=== PATIENT | male | born 1945 | race Caucasian/White ===

== ENCOUNTER 2022-03-14 18:33 | Emergency (ER) | payer OTHER, SELFPAY ==
[2022-03-14] VITALS (7 sets, daily range): BP systolic 142–176; BP diastolic 68–79; PULSE 59–71; RESP 18; TEMP 36.7; O2SAT 96–99
--- NOTE | 2022-03-14 19:18 | PC.NURSE ---
Pt reports indwelling catheter for approximately 2 months, [facility] Pt reports no output since draining catheter bag this morning. Abdominal pain intermittent for the past few months, no worse today, 4/10 with palpitation. Pt reports peeing around catheter at times and increased pain when that happens, thick purulent drainage noted around catheter entrance site.
--- NOTE | 2022-03-14 19:59 | ED_ITS ---
HPI - Male Genitourinary General Chief complaint: Urogenital-Male Stated complaint: Issue with his Jauregui catheter, has MSA Time Seen by Provider: 03/14/22 19:31 Source: patient Mode of arrival: Family Vehicle History of Present Illness HPI Narrative: This is a 76-year-old male with MS-a aggressive Parkinson's like MS and labile blood pressure and urinary retention. Patient states had issues with his Jauregui catheter today he has been unable to urinate has not made any urine or seen any come out but bladder does feel full. He denies fevers or chills. No chest pain or shortness of breath. No nausea or vomiting. Been constipated he tried an enema today has had a bowel movement for several days but has been passing gas. He states he is noticed some drainage around the catheter that looks a little bit like thick urine. Patient use to self-catheterize but switch to indwelling Jauregui catheter about 2 and half months ago he had switched out about 2-3 weeks ago. He has not really had any issues up to this point. He is not ant icoagulated. He is had a TURP in the past as well as hernia repair. Denies drug allergies. He is accompanied by his today. Related Data Previous Rx's Medication Instructions Recorded cephalexin 500 mg capsule 500 mg PO BID 7 days #14 caps 03/14/22 Review of Systems Review of Systems ROS Unobtainable: All systems reviewed & are unremarkable except as noted in HPI and below Patient History Social History Smoking Status: Former smoker Smoking Status: Former smoker alcohol intake frequency: 0-2 drinks per day Substance Use Type: does not use Exam Narrative Exam Narrative: GENERAL: Alert and oriented x three, male in mild distress HEENT: Head normocephalic, atraumatic, EOMI, pupils reactive, face symmetric, moist mucous membranes NECK: Supple, full range of motion CARDIOVASCULAR: Regular rate and rhythm without murmurs, rubs or gallops. RESPIRATORY: Breath sounds equal bilaterally, no wheezes rales or rhonchi. ABDOMEN: Soft, nontender. Normoactive bowel sounds all 4 quadrants. No guarding or rebound, rigidity, no mass : No CVA tenderness. Male: normal external examination, no penile discharge noted Jauregui catheter in place not draining even when flushed, patient does have area of erosion at the 6 o'clock position the urethral meatus, it appears fairly healed, no drainage or erythema and patient states this has been present for some time and is not new, testicles non-tender, cremasteric reflex intact, no inguinal hernias noted. EXTREMITIES: Normal range of motion, no clubbing or edema. Neurovascularly intact NEUROLOGICAL: Cranial nerves II through XII grossly intact. Moving all extremities SKIN: Warm, dry, no petechiae, no rashes or lesions. Initial Vital Signs Initial Vital Signs: Vital Signs Pulse Rate 71 03/14/22 18:51 Blood Pressure 150/72 H 03/14/22 18:51 Pulse Oximetry 97 03/14/22 18:51 Course Orders Ordered: ED Orders 03/14/22 20:10 UA Complete [Urinalysis and Microscopic] Stat Urine Culture Stat 03/14/22 20:28 BMP [Basic Metabolic Panel] Stat CBC Auto Diff [Complete Blood Count AUTO DIFF] Stat Discontinued Medications Cephalexin HCl (Cephalexin 250 Mg Capsule) 500 mg PO NOW ONE Stop: 03/14/22 21:14 Last Admin: 03/14/22 21:21 Dose: 500 mg Documented By: AT Lidocaine HCl (Lidocaine 2% (Glydo) 6 Ml Gel) 6 ml TOP NOW ONE Stop: 03/14/22 19:52 Last Admin: 03/14/22 20:00 Dose: 6 ml Documented By: AT Vital Signs Vital signs: Vital Signs - 8 hr 03/14/22 18:56 03/14/22 18:51 03/14/22 18:51 Temperature 98.0 F Pulse Rate 71 71 Respiratory Rate 18 Blood Pressure 150/72 H 150/72 H Pulse Oximetry 96 97 Oxygen Delivery Method Room Air 03/14/22 19:00 03/14/22 19:00 03/14/22 19:30 Temperature Pulse Rate 70 Respiratory Rate Blood Pressure 145/74 H 161/77 H Pulse Oximetry 98 Oxygen Delivery Method 03/14/22 19:30 03/14/22 20:00 03/14/22 20:00 Temperature Pulse Rate 63 66 Respiratory Rate Blood Pressure 176/79 H Pulse Oximetry 99 99 Oxygen Delivery Method 03/14/22 20:30 03/14/22 20:30 03/14/22 21:00 Temperature Pulse Rate 61 Respiratory Rate Blood Pressure 151/72 H 142/68 H Pulse Oximetry 98 Oxygen Delivery Method 03/14/22 21:00 Temperature Pulse Rate 59 L Respiratory Rate Blood Pressure Pulse Oximetry 98 Oxygen Delivery Method MDM - Male Genitourinary Lab Data Result diagrams: 03/14/22 20:28 03/14/22 20:28 Labs: Lab Results 03/14/22 03/14/22 03/14/22 Range/Units 20:10 20:28 20:28 WBC 9.4 (4.5-11.0) X10^3/uL RBC 4.22 L (4.5-5.9) X10^6/uL Hgb 13.3 L (13.5-17.5) g/dL Hct 39.9 L (41-53) % MCV 94.8 (80-100) fL MCH 31.5 (26-34) PG MCHC 33.2 (30-36) % RDW 13.1 (11.6-14.8) % Plt Count 214 (150-400) X10^3/uL Neut % (Auto) 71.2 (50-75) % Lymph % (Auto) 12.3 L (25-40) % [place] % (Auto) 12.0 (3-14) % Eos % (Auto) 3.6 (2-4) % Baso % (Auto) 0.9 (0-2) % Neut # (Auto) 6700 (5501-6551) /uL Lymph # (Auto) 1200 (7865-0154) /uL [place] # (Auto) 1100 H (0-900) /uL Eos # (Auto) 300 (0-450) /uL Baso # (Auto) 100 (0-100) /uL Sodium 139 (137-145) mmol/L Potassium 4.2 (3.4-5.1) mmol/L Chloride 104 (98-107) mmol/L Carbon Dioxide 28 (22-32) mmol/L BUN 24 H (9-20) mg/dL Creatinine 0.84 (0.66-1.25) mg/dL Estimated GFR > 60 (>60) mL/min BUN/Creatinine Ratio 28.6 H (6-22) Glucose 87 (80-110) mg/dL Calcium 8.7 (8.4-10.2) mg/dL Urine Color Yellow Urine Appearance Cloudy Urine pH 8.5 H (4.5-8.0) Ur Specific [place] 1.015 (1.000-1.035) Urine Protein 3+ H (Negative) Urine Glucose (UA) Negative (Negative) g/dL Urine Ketones Trace H (NEGATIVE) Urine Occult Blood 2+ H (Negative) Urine Nitrate Positive H (Negative) Urine Bilirubin Negative (NEGATIVE) Urine Urobilinogen 0.2 (0.2) E.U./dL Ur Leukocyte Esterase 2+ H (NEGATIVE) Urine RBC None seen (0-5/HPF) Urine WBC 30-100/hpf H (0-5/HPF) Amorphous Sediment 1+ Urine Bacteria Many (>30) H (None) Ur Culture Indicated? Specimen cultured MDM Narrative Medical decision making narrative: This is a 76-year-old male with blocked catheter. Patient's catheter was able to be flushed, Jauregui was replaced and did drain urine. Sent for UA patient has had some pain and does appear to have a UTI. Patient started on oral antibiotic, CBC BMP were ordered as patient states he is not making very much urine regularly but shows normal renal function. Patient given 1st dose in the ER no signs of sepsis or other infection and catheter is now draining. Discharge Plan Departure Patient Disposition: Home Clinical Impression: Urinary tract infection Instructions: DI for Urinary Tract Infection (UTI) Activity Restrictions/Additional Instructions: Please follow-up with your physician/urology team. Your urine does show signs of infection today. Please take antibiotics until completely gone. Urine culture is sent but takes approximately 2 days result if there is resistance we would call you to change your antibiotics. Prescription sent to [facility] in [place]. Please return for fevers, new or worsening abdominal pain, persistent vomiting, if you are Jauregui catheter is not draining, if there is large clots or you are having difficulty with bleeding or other new or concerning issues. Prescriptions: New cephalexin 500 mg capsule 500 mg PO BID 7 Days Qty: 14 0RF Visit Report Forms: Patient Portal/API
[2022-03-14] MEDS: LIDOCAINE 2% (GLYDO) 6 ML GEL TOP (20:00)
[2022-03-14 20:22] LABS: Appearance Urine UA CLOUDY; Bilirubin Urine UA NEGATIVE (NEGATIVE); Color Urine UA YELLOW; Glucose Urine UA NEGATIVE (Negative); Ketones Urine UA TRACE (NEGATIVE); Leukocyte Esterase Urine UA 2+ (NEGATIVE); Nitrite Urine UA POSITIVE (Negative); Occult Blood Urine UA 2+ (Negative); Protein Urine UA 3+ (Negative); Specific Gravity Urine UA 1.015 (1.000-1.035); Urobilinogen Urine UA 0.2 E.U./dL (0.2); pH Urine UA 8.5 (4.5-8.0)
[2022-03-14 20:34] LABS: Amorphous Sediment Urine 1+; Bacteria Urine Many (>30); Culture Indicated Urine Specimen Cultured; RBC Urine None Seen (0-5/HPF); WBC Urine 30-100/HPF (0-5/HPF)
[2022-03-14 20:36] LABS: Add Manual Diff / Slide Review NO; Basophils Absolute Auto 100 /uL (0-100); Basophils Percent Auto 0.9 % (0-2); Eosinophils Absolute Auto 300 /uL (0-450); Eosinophils Percent Auto 3.6 % (2-4); Hematocrit 39.9 % (41-53); Hemoglobin 13.3 g/dL (13.5-17.5); Lymphocytes Absolute Auto 1200 /uL (1100-4500); Lymphocytes Percent Auto 12.3 % (25-40); Mean Corpuscular HGB Conc 33.2 % (30-36); Mean Corpuscular Hemoglobin 31.5 PG (26-34); Mean Corpuscular Volume 94.8 fL (80-100); Monocytes Absolute Auto 1100 /uL (0-900); Neutrophils Absolute Auto 6700 /uL (1500-7000); Neutrophils Percent Auto 71.2 % (50-75); Platelet Count 214 X10^3/uL (150-400); Red Blood Cell Count 4.22 X10^6/uL (4.5-5.9); Red Cell Distribution Width 13.1 % (11.6-14.8); White Blood Cell Count 9.4 X10^3/uL (4.5-11.0)
[2022-03-14 20:49] LABS: BUN Creatinine Ratio 28.6 (6-22); Blood Urea Nitrogen 24 mg/dL (9-20); Calcium 8.7 mg/dL (8.4-10.2); Carbon Dioxide 28 mmol/L (22-32); Chloride 104 mmol/L (98-107); Estimated Glomerular Filt Rate > 60 mL/min (>60); Glucose 87 mg/dL (80-110); HEMOLYSIS < 15 (0-50); Potassium 4.2 mmol/L (3.4-5.1); Sodium 139 mmol/L (137-145)
[2022-03-14] MEDS: cephALEXin 250 MG CAPSULE 500 MG PO (21:21)
== END 2022-03-14 21:38 | disposition home or self-care (01) ==
PROVIDERS: Emergency Provider Emergency Medicine
DX: N39.0 Urinary tract infection, site not specified (principal)
CPT/HCPCS: 36415; 80048; 81001; 85025; 87077; 87086; 87186; 99283; 99284

== ENCOUNTER 2022-03-28 06:31 | Emergency (ER) | payer OTHER, SELFPAY ==
[2022-03-28 07:15] VITALS: BP 105/58; PULSE 63; RESP 18; TEMP 36.5; O2SAT 97; BMI 23.6
--- NOTE | 2022-03-28 08:29 | PC.NURSE ---
Patient states he has Parkinson's and self catheterized himself previously, but had an indwelling catheter placed within the last year due to decreasing motor ability and difficulty with properly self catheterizing. He was in 2 weeks ago for catheter not draining and presents today with no urine in his leg bag since 2200 last night. Upon inspection, he has a 14 Fr catheter in. He stated that at his last visit, they were unable to irrigate it and replaced it. Removed his current catheter and replaced with a 16 Fr coude tip, 2 way catheter to prevent further blockages. Previous catheter had some white/yellow chunks of sediment around the tip of the catheter. Patient tolerated procedure without difficulty and dark yellow urine now flowing freely into drainage bag. Gave patient a new leg bag and securement device as well.
--- NOTE | 2022-03-28 08:36 | ED.MALEGU ---
HPI - Male Genitourinary General Chief complaint: Urogenital-Male Stated complaint: cathater not draining Time Seen by Provider: 03/28/22 08:23 Source: patient Mode of arrival: Ambulatory Limitations: no limitations History of Present Illness HPI Narrative: This is a 76-year-old male with history of Parkinson's and indwelling Jauregui catheter. Patient used to self-catheterize but secondary to his Parkinson's is no longer able to and had a indwelling Jauregui catheter placed about 2 months ago. He had UTI about 3 weeks ago. Patient states that he is noticed quite a bit of sedimentation and today presented as the catheter was blocked and not draining. Patient denies fevers. Has had some chills sensation. No abdominal, back or flank pain, no nausea or vomiting. No other GI symptoms. Patient has not had any with urination. He denies any allergies to medications. Follows through the [facility] for his care they are changing his catheter once monthly following with them for Urology. Related Data Previous Rx's Medication Instructions Recorded cephalexin 500 mg capsule 500 mg PO BID 7 days #14 caps 03/28/22 Review of Systems Review of Systems ROS Unobtainable: All systems reviewed & are unremarkable except as noted in HPI and below Patient History Social History Smoking Status: Former smoker Smoking Status: Former smoker alcohol intake frequency: 0-2 drinks per day Substance Use Type: does not use Exam Narrative Exam Narrative: GENERAL: Alert and oriented x three, elderly male in mild distress. HEENT: Head normocephalic, atraumatic, EOMI, pupils reactive, face symmetric, moist mucous membranes NECK: Supple, full range of motion CARDIOVASCULAR: Regular rate and rhythm without murmurs, rubs or gallops. RESPIRATORY: Breath sounds equal bilaterally, no wheezes rales or rhonchi. ABDOMEN: Soft, nontender. Normoactive bowel sounds all 4 quadrants. No guarding or rebound, rigidity, no mass : No CVA tenderness. Male: normal external examination, patient does have Jauregui catheter in place this the new catheter changed over by nursing, draining dark yellow sedimentation urine, no blood or clots. No penile discharge or lesions, testicles non-tender, cremasteric reflex intact, no inguinal hernias noted. EXTREMITIES: Normal range of motion, no clubbing or edema. Neurovascularly intact NEUROLOGICAL: Cranial nerves II through XII grossly intact. Moving all extremities SKIN: Warm, dry, no petechiae, no rashes or lesions. Initial Vital Signs Initial Vital Signs: Vital Signs Temperature 97.7 F 03/28/22 07:15 Pulse Rate 63 03/28/22 07:15 Respiratory Rate 18 03/28/22 07:15 Blood Pressure 105/58 L 03/28/22 07:15 Pulse Oximetry 97 03/28/22 07:15 Oxygen Delivery Method 03/28/22 07:15 Course Orders Ordered: ED Orders 03/28/22 08:45 UA Complete [Urinalysis and Microscopic] Stat Vital Signs Vital signs: Vital Signs - 8 hr 03/28/22 07:15 Temperature 97.7 F Pulse Rate 63 Respiratory Rate 18 Blood Pressure 105/58 L Pulse Oximetry 97 Oxygen Delivery Method Room Air MDM - Male Genitourinary Lab Data Labs: Lab Results 03/28/22 Range/Units 08:45 Urine Color [place] Urine Appearance Cloudy Urine pH 8.5 H (4.5-8.0) Ur Specific [place] 1.010 (1.000-1.035) Urine Protein 2+ H (Negative) Urine Glucose (UA) Trace H (Negative) g/dL Urine Ketones Negative (NEGATIVE) Urine Occult Blood 3+ H (Negative) Urine Nitrate Positive H (Negative) Urine Bilirubin Negative (NEGATIVE) Urine Urobilinogen 0.2 (0.2) E.U./dL Ur Leukocyte Esterase 3+ H (NEGATIVE) Urine RBC 10-30/hpf H (0-5/HPF) Urine WBC 10-30/hpf H (0-5/HPF) Ur Squamous Epith Cells 0-1 /hpf (0-5/HPF) Urine Bacteria Many (>30) H (None) Ur Culture Indicated? Specimen cultured MDM Narrative Medical decision making narrative: This is a pleasant 76-year-old male who had blockage of his Jauregui catheter with what appeared to be sediment, patient does have quite a bit of sediment in his urine UA was sent for suspected infection. Patient has been self cathing residential and only recently moved indwelling catheter. Patient was seen in March of 2014 and had greater than 100,000 Citrobacter and [id number] Klebsiella which were pansensitive except for ampicillin and Macrobid. Patient does appear to be sensitive to cephalosporins will start on Keflex 500 mg p.o. b.i.d. x7 days. Discharge Plan Departure Patient Disposition: Home Clinical Impression: Complication, blocked Jauregui catheter Activity Restrictions/Additional Instructions: Follow-up with your urology team. Antibiotics were started today based on her prior cultures. Culture report from 03/14/2022 showed Citrobacter and Klebsiella. This culture is included so you can share with your urologist. Your sample today has been re-cultured as well and is pending if this shows resistance we will contact you to change antibiotics. Antibiotics sent to [facility] in [place]. Please return for fevers, new or worsening abdominal, back or flank pain, if you have recurrent blockage of her catheter, fits not draining or you have decreased urine output, persistent vomiting, issues bowel movements or other new or concerning symptoms. Prescriptions: New cephalexin 500 mg capsule 500 mg PO BID 7 Days Qty: 14 0RF Referrals: Shantelle Spivey MD [Primary Care Provider] - Visit Report Forms: Patient Portal/API
[2022-03-28 08:54] LABS: Appearance Urine UA CLOUDY; Bilirubin Urine UA NEGATIVE (NEGATIVE); Color Urine UA ORANGE; Glucose Urine UA TRACE g/dL (Negative); Ketones Urine UA NEGATIVE (NEGATIVE); Leukocyte Esterase Urine UA 3+ (NEGATIVE); Nitrite Urine UA POSITIVE (Negative); Occult Blood Urine UA 3+ (Negative); Protein Urine UA 2+ (Negative); Urobilinogen Urine UA 0.2 E.U./dL (0.2); pH Urine UA 8.5 (4.5-8.0)
[2022-03-28 08:59] LABS: Bacteria Urine Many (>30); Culture Indicated Urine Specimen Cultured; RBC Urine 10-30/HPF (0-5/HPF); Squamous Epithelial Cell Urine 0-1 /HPF (0-5/HPF); WBC Urine 10-30/HPF (0-5/HPF)
[2022-03-28 09:41] VITALS: BP 168/83; PULSE 65; RESP 18; O2SAT 98
--- NOTE | 2022-03-28 09:45 | PC.NURSE ---
Patient has Parkinson's and is a [facility]. He has had two repeat ED visits for catheter issues. He sees a urologist through the [facility] in [place]. He was instructed to follow up with his urologist after today's visit, but he states that traveling to [place] is an extreme hardship for him. He has an electric wheelchair, but no lift. Patient required assistance with dressing and transferring into wheelchair. RN walked him out and he travels in the front seat of a van, which is lifted several inches off of the ground. Patient has prior history of repeat falls, but states this is under control at this time. He does state he has some difficulty navigating their bathroom. Request for social services director to follow up with patient to ensure they are aware of any resources that may be available for DME/home safety devices. Patient and spouse agreeable to [facility] follow up. They will attempt to establish care with a [facility] in [facility], which is more accessible to them.
== END 2022-03-28 09:44 | disposition home or self-care (01) ==
PROVIDERS: Emergency Provider Emergency Medicine; Family Provider Psychiatry & Neurology Neurology; PCP Psychiatry & Neurology Neurology
DX: T83.091A Other mechanical complication of indwelling urethral catheter, initial encounter (principal)
CPT/HCPCS: 51798; 81001; 87077; 87086; 87186; 99283

== ENCOUNTER 2022-04-19 18:38 | Emergency (ER) | payer OTHER, SELFPAY ==
[2022-04-19 18:44] VITALS: BP 110/64; PULSE 68; RESP 20; TEMP 36.7; O2SAT 98
--- NOTE | 2022-04-19 19:13 | ED.MALEGU ---
HPI - Male Genitourinary General Chief complaint: Urogenital-Male Stated complaint: Clogged Cath Time Seen by Provider: 04/19/22 18:55 Source: patient Mode of arrival: Wheelchair Limitations: no limitations History of Present Illness HPI Narrative: The patient has MS. He has required an indwelling Jauregui catheter for the past 3 months. The catheter was last changed about 1.5 weeks ago. He is followed by the [facility], that is where he gets his primary care. Urology consult is pending. The catheter stopped working earlier today. He presents with lower abdominal pressure. He has no nausea vomiting. He has no fever chills. He has no genital pain. He is on daily prophylactic antibiotics, he is uncertain which antibiotic. Review of Systems Review of Systems ROS Unobtainable: All systems reviewed & are unremarkable except as noted in HPI and below Patient History Medical History (Updated 04/19/22 @ 19:22 by Santana Butler MD) Multiple sclerosis Urinary retention Social History Smoking Status: Former smoker Smoking Status: Former smoker alcohol intake frequency: 0-2 drinks per day Substance Use Type: does not use Exam Initial Vital Signs Initial Vital Signs: Vital Signs Temperature 98.0 F 04/19/22 18:44 Pulse Rate 68 04/19/22 18:44 Respiratory Rate 20 04/19/22 18:44 Blood Pressure 110/64 04/19/22 18:44 Pulse Oximetry 98 04/19/22 18:44 Oxygen Delivery Method 04/19/22 18:44 Const General: cooperative, comfortable, well developed and well groomed Orientation: Orientation (Normal) [facility] Head: normal to inspection, normocephalic and atraumatic GI Inspection: normal to inspection Palpation: soft, No guarding and No mass Percussion: normal to percussion Auscultation: normal bowel sounds Penis: normal penis Scrotum: scrotum normal Back/Spine/Pelvis Back: No CVA tenderness Course Course Course Narrative: Jauregui was changed by the your nurse. He has really 600 mL of clear yellow urine. He is feeling much better. He is on prophylactic antibiotics. Urine cultures been ordered. Orders Ordered: ED Orders 04/19/22 19:00 Urine Culture Stat Vital Signs Vital signs: Vital Signs - 8 hr 04/19/22 18:44 Temperature 98.0 F Pulse Rate 68 Respiratory Rate 20 Blood Pressure 110/64 Pulse Oximetry 98 Oxygen Delivery Method Room Air Discharge Plan Departure Patient Disposition: Home Clinical Impression: Urinary retention Instructions: DI for Urinary Retention in Men Activity Restrictions/Additional Instructions: Drink plenty of water all times. Follow-up for your scheduled catheter change. Follow-up with Urology when scheduled. Return here as needed. We have ordered a culture. We will call you if action is necessary Referrals: Shantelle Spivey MD [Primary Care Provider] - Visit Report Forms: Patient Portal/API
[2022-04-19 19:35] VITALS: BP 150/75; PULSE 70; RESP 18; O2SAT 98
== END 2022-04-19 19:36 | disposition home or self-care (01) ==
PROVIDERS: Emergency Provider Emergency Medicine; Family Provider Psychiatry & Neurology Neurology; PCP Psychiatry & Neurology Neurology
DX: R33.8 Other retention of urine (principal)
CPT/HCPCS: 51798; 87077; 87086; 87186; 99282

== ENCOUNTER 2022-04-27 20:59 | Emergency (ER) | payer OTHER, SELFPAY ==
[2022-04-27 21:17] VITALS: BP 175/72; PULSE 67; RESP 20; TEMP 36.6; O2SAT 98
[2022-04-27 21:38] VITALS: BP 183/84
[2022-04-27 21:41] VITALS: PULSE 65; RESP 18; O2SAT 99
--- NOTE | 2022-04-27 21:43 | ED_ITS ---
HPI - Male Genitourinary General Chief complaint: Urogenital-Male Stated complaint: plugged urinary catheter Time Seen by Provider: 04/27/22 21:42 Source: patient Mode of arrival: Ambulatory History of Present Illness HPI Narrative: 76-year-old male former smoker with history of MS and urinary retention presents with a complaint that his Jauregui catheter has not been draining for the past few hours and he has mild suprapubic tenderness. He denies any systemic complaints such as dizziness, weakness or lightheadedness. He has no fever, chills nor nausea or vomiting. He was seen about 1 week ago under similar circumstances in his catheter was changed with complete resolution of symptoms. He is otherwise well and free of complaint Review of Systems Review of Systems Narrative: GENERAL: Denies chills, fatigue, malaise, fever, sweats. HEENT: Denies sinus pain, ear pain, sore throat, difficulty swallowing, dizziness. RESPIRATORY: Denies dyspnea, cough, wheezing, hemoptysis, sputum. CARDIOVASCULAR: Denies chest pain, palpitations, orthopnea, edema, GASTROINTESTINAL: Denies nausea, vomiting, abdominal pain, diarrhea, constipati on, melena. : See HPI MUSCULOSKELETAL: denies weakness, joint pain, or bony pain SKIN: Denies rash, skin lesions, or other NEUROLOGIC: Denies weakness, headache, numbness, change in speech, confusion, seizures, incoordination. PSYCHIATRIC: No concerning psychosocial issues. 12 point review of systems is negative except for those stated above Patient History Medical History Multiple sclerosis Urinary retention Social History Smoking Status: Former smoker Smoking Status: Former smoker alcohol intake frequency: 0-2 drinks per day Substance Use Type: does not use Exam Narrative Exam Narrative: GEN: AOx3 and in minimal distress, resting comfortably, smiling and pleasant EYES: Pupils are equal, round, and reactive to light and accommodation. Extraoccular muscles are intact bilaterally. There is no subconjunctival hemorrhage or exudate. CHEST: Lungs are clear to auscultation bilaterally and free of wheezes, rales, or rhonchi. Heart rate is regular rhythm, there are no murmurs, clicks, rubs, or gallops. There is no chest wall tenderness. ABD: Abdomen is soft and minimally tender over the suprapubic region, some firmness overlying the bladder There is no guarding or rebound. Bowel sounds are normal in all 4 quadrants. There is no mass or organomegaly. EXT: Full painless ROM of all extremities with no loss of sensation or strength. SKIN: Warm, pink, and dry. No erythema or rash Initial Vital Signs Initial Vital Signs: Vital Signs Temperature 97.9 F 04/27/22 21:17 Pulse Rate 67 04/27/22 21:17 Respiratory Rate 20 04/27/22 21:17 Blood Pressure 175/72 H 04/27/22 21:17 Pulse Oximetry 98 04/27/22 21:17 Oxygen Delivery Method 04/27/22 21:17 Course Vital Signs Vital signs: Vital Signs - 8 hr 04/27/22 21:17 Temperature 97.9 F Pulse Rate 67 Respiratory Rate 20 Blood Pressure 175/72 H Pulse Oximetry 98 Oxygen Delivery Method Room Air MDM - Male Genitourinary MDM Narrative Medical decision making narrative: Jauregui catheter easily and quickly swabbed out by nursing, 950 mils of urine out, patient feeling significant improvement, encouraged to follow-up with his care team. Return precautions given and questions answered to his apparent satisfaction Discharge Plan Departure Patient Disposition: Home Clinical Impression: Acute on chronic urinary retention, Jauregui catheter problem Instructions: How to Care for Your Jauregui Catheter -- Male Activity Restrictions/Additional Instructions: *You have been diagnosed with [Jauregui catheter problem] *What to do: *Please continue to take your regular medications as directed. *Please follow up with your primary uroogist in 2-3 days, call for an appointment. Let them know you were seen in the Emergency Department and that we ask that you be seen in follow up. We will electronically transmit a record of today's note *Return to Emergency Department if you should have any new, worsening or concerning symptoms Referrals: Bonny Hancock MD [Physician] - Shantelle Spivey MD [Primary Care Provider] - Visit Report Forms: Patient Portal/API
[2022-04-27 22:00] VITALS: BP 164/79; PULSE 69; RESP 17
[2022-04-27 22:30] VITALS: PULSE 71; RESP 13; O2SAT 98
== END 2022-04-27 22:48 | disposition home or self-care (01) ==
PROVIDERS: Emergency Provider Emergency Medicine; Family Provider Psychiatry & Neurology Neurology; PCP Psychiatry & Neurology Neurology
DX: T83.9XXA Unspecified complication of genitourinary prosthetic device, implant and graft, initial encounter (principal); R33.9 Retention of urine, unspecified
CPT/HCPCS: 51702; 99282; 99283

== ENCOUNTER 2022-05-07 18:46 | Emergency (ER) | payer OTHER, SELFPAY ==
[2022-05-07 18:55] VITALS: BP 125/69; PULSE 75; RESP 18; TEMP 36.8; O2SAT 95; BMI 19.2
[2022-05-07 21:29] LABS: Bilirubin Urine UA NEGATIVE (NEGATIVE); Color Urine UA YELLOW; Glucose Urine UA NEGATIVE (Negative); Ketones Urine UA TRACE (NEGATIVE); Leukocyte Esterase Urine UA 3+ (NEGATIVE); Nitrite Urine UA POSITIVE (Negative); Occult Blood Urine UA 3+ (Negative); Protein Urine UA 1+ (Negative); Specific Gravity Urine UA <=1.005 (1.000-1.035); Urobilinogen Urine UA 0.2 E.U./dL (0.2); pH Urine UA 8.5 (4.5-8.0)
[2022-05-07 21:33] LABS: Appearance Urine UA CLOUDY
[2022-05-07 21:38] LABS: Bacteria Urine Many (>30); Culture Indicated Urine Specimen Cultured; RBC Urine 10-30/HPF (0-5/HPF); Triple Phosphate Crystal Urine Moderate; WBC Urine 1-5/HPF (0-5/HPF)
--- NOTE | 2022-05-07 22:02 | ED.MALEGU ---
HPI - Male Genitourinary General Chief complaint: Urogenital-Male Stated complaint: Clogged cath Time Seen by Provider: 05/07/22 21:10 Source: patient Mode of arrival: Ambulatory History of Present Illness HPI Narrative: 76-year-old male former smoker with history of MS and urinary retention presents with a complaint that his Jauregui catheter has not been draining for the past few hours. He states he is otherwise fine and well and denies dizziness, weakness or lightheadedness. He is had no fever or chills. He denies chest pain or shortness of breath. He is had no nausea or vomiting. Related Data Allergies Allergy/AdvReac Type Severity Reaction Status Date / Time No Known Drug Allergies Allergy Verified 05/07/22 18:58 Review of Systems Review of Systems Narrative: GENERAL: Denies chills, fatigue, malaise, fever, sweats. HEENT: Denies sinus pain, ear pain, sore throat, difficulty swallowing, dizziness. RESPIRATORY: Denies dyspnea, cough, wheezing, hemoptysis, sputum. CARDIOVASCULAR: Denies chest pain, palpitations, orthopnea, edema, GASTROINTESTINAL: Denies nausea, vomiting, abdominal pain, diarrhea, constipation, melena. : See HPI MUSCULOSKELETAL: denies weakness, joint pain, or bony pain SKIN: Denies rash, skin lesions, or other NEUROLOGIC: Denies weakness, headache, numbness, change in speech, confusion, seizures, incoordination. PSYCHIATRIC: No concerning psychosocial issues. 12 point review of systems is negative except for those stated above Patient History Medical History Multiple sclerosis Urinary retention Social History Smoking Status: Former smoker Smoking Status: Former smoker alcohol intake frequency: 0-2 drinks per day Substance Use Type: does not use Exam Narrative Exam Narrative: GEN: AOx3 and in mild distress EYES: Pupils are equal, round, and reactive to light and accommodation. Extraoccular muscles are intact bilaterally. There is no subconjunctival hemorrhage or exudate. CHEST: Lungs are clear to auscultation bilaterally and free of wheezes, rales, or rhonchi. Heart rate is regular rhythm, there are no murmurs, clicks, rubs, or gallops. There is no chest wall tenderness. ABD: Abdomen is soft mild suprapubic tenderness. There is no guarding or rebound. Bowel sounds are normal in all 4 quadrants. There is no mass or organomegaly. EXT: Full painless ROM of all extremities with no loss of sensation or strength. SKIN: Warm, pink, and dry. No erythema or rash Initial Vital Signs Initial Vital Signs: Vital Signs Temperature 98.2 F 05/07/22 18:55 Pulse Rate 75 05/07/22 18:55 Respiratory Rate 18 05/07/22 18:55 Blood Pressure 125/69 05/07/22 18:55 Pulse Oximetry 95 05/07/22 18:55 Oxygen Delivery Method 05/07/22 18:55 Course Orders Ordered: ED Orders 05/07/22 21:27 Urinalysis and Microscopic Stat Urine Culture Stat Reevaluation(s) Reevaluation #1: Jauregui catheter replaced, patient feels near immediate and complete resolution of symptoms. Urine is cloudy but looks better than last few visits. Likely findings consistent with chronic Jauregui catheter. Patient has no systemic findings. No indication for antibiotics at this time. Urine has been sent, culture pending Vital Signs Vital signs: Vital Signs - 8 hr 05/07/22 18:55 Temperature 98.2 F Pulse Rate 75 Respiratory Rate 18 Blood Pressure 125/69 Pulse Oximetry 95 Oxygen Delivery Method Room Air MDM - Male Genitourinary Lab Data Labs: Lab Results 05/07/22 Range/Units 21:27 Urine Color Yellow Urine Appearance Cloudy Urine pH 8.5 H (4.5-8.0) Ur Specific [place] <=1.005 (1.000-1.035) Urine Protein 1+ H (Negative) Urine Glucose (UA) Negative (Negative) g/dL Urine Ketones Trace H (NEGATIVE) Urine Occult Blood 3+ H (Negative) Urine Nitrate Positive H (Negative) Urine Bilirubin Negative (NEGATIVE) Urine Urobilinogen 0.2 (0.2) E.U./dL Ur Leukocyte Esterase 3+ H (NEGATIVE) Urine RBC 10-30/hpf H (0-5/HPF) Urine WBC 1-5/hpf (0-5/HPF) Triple Phos Crystals Moderate Urine Bacteria Many (>30) H (None) Ur Culture Indicated? Specimen cultured Discharge Plan Departure Patient Disposition: Home Clinical Impression: Jauregui catheter problem Instructions: How to Care for Your Jauregui Catheter -- Male Activity Restrictions/Additional Instructions: *You have been diagnosed with [Jauregui catheter problem] *What to do: *Please continue to take your regular medications as directed. *Please follow up with your primary care provider in 2-3 days, call for an appointment. Let them know you were seen in the Emergency Department and that we ask that you be seen in follow up. We will electronically transmit a record of today's note if your PCP is in our system *If you do not have a primary care provider please contact the [facility] Resource line at [phone]. They will ask some questions about your medical history and help get you set up with a doctor in the community. *Return to Emergency Department if you should have any new, worsening or concerning symptoms, such as [fever greater than 101 F, shaking chills, worsening pain, persistent vomiting or other bothersome symptoms] Referrals: Shantelle Spivey MD [Primary Care Provider] - Visit Report Forms: Patient Portal/API
== END 2022-05-07 22:26 | disposition home or self-care (01) ==
PROVIDERS: Emergency Provider Emergency Medicine; Family Provider Psychiatry & Neurology Neurology; PCP Psychiatry & Neurology Neurology
DX: T83.9XXA Unspecified complication of genitourinary prosthetic device, implant and graft, initial encounter (principal)
CPT/HCPCS: 81001; 87077; 87086; 87186; 99281; 99282

== ENCOUNTER 2022-05-14 14:05 | Outpatient (RCR) | payer OTHER, SELFPAY ==
--- NOTE | 2022-04-23 11:58 | ST-OP ANOTE ---
Physical, Occupational & Speech Therapy At [facility] Speech Therapy Note Patient arrived too late to be seen for his 11:30 appointment on 04/23/2022. Evaluation rescheduled for Tuesday, April 26, 2022 at 13:30.
--- NOTE | 2022-04-30 11:45 | ST-OP ANOTE ---
Physical, Occupational & Speech Therapy At [facility] Speech Therapy Note Patient did not show for scheduled eval on 04/30/22 at 11:30.
--- NOTE | 2022-05-14 17:42 | ST.OPIE ---
Visit Care Team Role Provider Type Other Providers Specialty: Address: Phone: Fax: Email: Shantelle Spivey MD Attending Provider Non-Staff Family Provider Primary Care Provider Referring Provider Specialty: Psychiatry Address: [address] [facility] [id number], [place], [address] Email: Speech-Language Pathology Initial Evaluation OUTER DIAMETER TECHNICIAN Adult Cognitive Linguistic Eval Start: 05/14/22 14:32 Freq: Status: Active Protocol: Document 05/14/22 17:02 LNK (Rec: 05/14/22 17:41 LNK [id number]) Adult Cognitive Linguistic Evaluation Session Time Visit Start Time 14:30 Visit Stop Time 15:00 Total Visit Minutes 30 Referral Referring Provider Rebecca Spivey MD Reason for Referral cognitive communication evaluation/ swallowing evaluation Setting Assessment Location Outpatient Care Patient Information Identification Type Name,Date of Patient History Pt was seen for assessment od cognitive-communication and swallowing. Pt presented for the evaluation independently. Pt has a PMH of Parkinson's Disease and uses a motorized wheel chair to navigate. Relative to his swallowing, pt reported that he sometimes has difficulty with eating hamburgers as they are hard to swallow. He denied any choking episodes. he noted that he has been cutting his food into small bites, which make chewing and swallowing much easier. Additionally, when asked about his cognitive skills, the pt denied difficulty with the exception of short term memory at times. He felt that his memory was age-related. Occupation Status retired Hearing Hearing Level Normal Assessment Oral Motor Examination Completed Yes Results OME was observed to be WNL for form and function. Pt's diadochokineses was mildly slower than typical. His speech was clear when he remembered to speak louder with slowed articulation. Informal Assessment Receptive Language Normal Yes Expressive Language Normal Yes Pragmatic Language Normal Yes Speech Impairment(s) Fast speech rate,Decreased volume/intensity Cognition Normal Yes Formal Assessment Standardized Test/Screener Type [facility] Mental Status (UMS) Administration Complete Results pt pt's score on the SLUMS was 23/30. The pt was able to answer orientation questions, compute mental math and number manipulation, draw a clock face and put in the correct time and differentiate size/ shape. Divergent naming was adequate. Pt's difficulties were related to short term memory. He was unable to remember 3/5 words after a delay and he was unable to answer 1 question regarding details from a story read to him. The results of the SLUMS indicated a mild cognitive disorder, which can be attributed to an age related changes. Findings/Results Cognitive Function Mildly impaired Cognitive Communication Deficits Self-awareness of Cognitive- Situational awareness ( Communication Deficits recognition of problem in context;in real time) Concomitant Factors Comment age Plan of Care Speech-Language Treatment No Patient/Caregiver Education Described results of evaluation,Patient expressed understanding of evaluation, Patient expressed agreement with goals and treatment plans OUTER DIAMETER TECHNICIAN Clinical Swallow Evaluation Start: 05/14/22 14:32 Freq: Status: Active Protocol: Document 05/14/22 17:02 LNK (Rec: 05/14/22 17:41 LNK [id number]) Clinical Swallow Evaluation Session Time Visit Start Time 15:00 Visit Stop Time 15:30 Total Visit Minutes 30 Referral Referring Provider Rebecca Spivey MD Setting Assessment Location Outpatient Care Visit Type Note Type Initial evaluation Patient Information Identification Type Name,Date of History Pt was seen for assessment od cognitive-communication and swallowing. Pt presented for the evaluation independently. Pt has a PMH of Parkinson's Disease and uses a motorized wheel chair to navigate. Relative to his swallowing, pt reported that he sometimes has difficulty with eating hamburgers as they are hard to swallow. He denied any choking episodes. he noted that he has been cutting his food into small bites, which make chewing and swallowing much easier. Additionally, when asked about his cognitive skills, the pt denied difficulty with the exception of short term memory at times. He felt that his memory was age-related. Reported by Patient Other Symptoms Difficulty swallowing solids Current Diet Regular Baseline Feeding Method Independent in self-feeding Objective Assessment Mental Status Alert,Responsive,Cooperative Oral Integrity WFL Dentition Within normal limits Lip Function Within normal limits Observation of Lips at Rest Symmetrical Lip Retraction Within normal limits Tongue Function Within normal limits Observations of Tongue at Rest Within normal limits Tongue Protrusion Within normal limits Tongue Retraction Within normal limits Tongue Lateralization Within normal limits Jaw Function Within normal limits Observations of Jaw at Rest Within normal limits Hard/Soft Palate Function Within normal limits Observations of Hard/Soft Palate Within normal limits Food and Liquid Trials Position During Assessment Upright (90 degrees) Liquids Trialed Ice chips Solids Trialed Regular Administration Type Self-feeding Oral Impairment Within normal limits Oral Phase Comments Pt demonstrated good mastication with good rotary chew pattern. Good bolus preparation, bolus hold, AP transition and prompt swallow. No oral residue observed. Pharyngeal Impairment Within normal limits Pharyngeal Phase Comments Good hyolaryngeal elevation, able to swallow consecutively without difficulty, no wet vocal quality or cough/choke observed. Pt's swallow was prompt. A clinical assessment cannot rule out silent aspiration. An instrumental assessment would be needed to better determine the status of the pharyngeal phase. No silent aspiration was suspected. Fatigue/Endurance Endurance WNL Findings Swallowing Function Within functional limits Severity of Swallow Impairment Within functional limits Contributing Factors to Swallow Mastication inefficiency Impairment Comments with smaller bites pt reorts no difficulty with swallow Prognosis Good Based on Cognitive status,Age Impact on Safety and Functioning No limitations Comments diagnosis of Parkinson's presents with potential for dysphagia Recommendations Instrumental Assessment No Swallowing Treatment No Recommended Solids Regular Recommended Liquids Thin Safety Precautions/Swallowing Upright position at least 30 Recommendations minutes after meals,Small bites and sips when eating, Slow rate; swallow between bites,Alternate liquids and solids Medication Recommendations As Tolerated Education Patient/Caregiver Education Described results of evaluation,Patient expressed understanding of evaluation, Patient expressed agreement with goals & treatment plans
== END 2022-05-18 11:13 | disposition home or self-care (01) ==
LOC: SP 14:05
PROVIDERS: Family Provider Psychiatry & Neurology Neurology; PCP Psychiatry & Neurology Neurology; Referring Provider Psychiatry & Neurology Neurology; Visit Provider Psychiatry & Neurology Neurology
DX: G21.9 Secondary parkinsonism, unspecified (principal)
CPT/HCPCS: 92523; 92610

== ENCOUNTER 2022-05-24 13:54 | Emergency (ER) | payer OTHER, SELFPAY ==
[2022-05-24 14:11] VITALS: BP 112/67; PULSE 66; RESP 16; TEMP 37.2; O2SAT 99; BMI 19.2
--- NOTE | 2022-05-24 14:35 | PC.NURSE ---
Tried to flush catheter with sterile water but unable to push any fluids through the catheter. Pt states catheter has been clogged before and has to be replaced each time. Pt states last thurman placed 10 days ago at the [place]. Thurman leg bag and tubing coatedin thick sludge. Thurman balloon deflated and removed without difficulty.
--- NOTE | 2022-05-24 14:36 | ED.MALEGU ---
HPI - Male Genitourinary General Chief complaint: Urogenital-Male Stated complaint: clogged catherter Time Seen by Provider: 05/24/22 14:36 Source: patient Mode of arrival: Ambulatory Limitations: no limitations History of Present Illness HPI Narrative: This is a 76-year-old male with history of MS with labile blood pressure and urinary retention with presenting for complaint of his Thurman catheter not draining well and blocked. Patient states it just started the last few hours he denies fevers or chills, no new pain, no other dizziness weakness or other symptoms. Patient denies any nausea or vomiting. No other GI or urinary symptoms currently. Patient states last time they gave him an antibiotic for possible infection but had to be changed based on sensitivities he would rather wait for culture. He states in the past he is waited 10 or 12 hours before coming in he came in much earlier today. He is still trying to follow-up with urology. Related Data Allergies Allergy/AdvReac Type Severity Reaction Status Date / Time No Known Drug Allergies Allergy Verified 05/07/22 18:58 Review of Systems Review of Systems ROS Unobtainable: All systems reviewed & are unremarkable except as noted in HPI and below Patient History Medical History Multiple sclerosis Urinary retention Social History Smoking Status: Former smoker Smoking Status: Former smoker alcohol intake frequency: 0-2 drinks per day Substance Use Type: does not use Exam Narrative Exam Narrative: GENERAL: Alert and oriented x three, male in mild distress. Patient has some dysarthria this is his baseline according to patient and family. HEENT: Head normocephalic, atraumatic, EOMI, pupils reactive, face symmetric, moist mucous membranes NECK: Supple, full range of motion CARDIOVASCULAR: Regular rate and rhythm without murmurs, rubs or gallops. RESPIRATORY: Breath sounds equal bilaterally, no wheezes rales or rhonchi. ABDOMEN: Soft, nondistended. Mildly tender suprapubically. Normoactive bowel sounds all 4 quadrants. No guarding or rebound, rigidity, no mass : No CVA tenderness, Thurman catheter removed. EXTREMITIES: Neurovascularly intact. NEUROLOGICAL: Cranial nerves II through XII grossly intact. Moving all extremities SKIN: Warm, dry, no petechiae, no rashes or lesions. Initial Vital Signs Initial Vital Signs: Vital Signs Temperature 98.9 F 05/24/22 14:11 Pulse Rate 66 05/24/22 14:11 Respiratory Rate 16 05/24/22 14:11 Blood Pressure 112/67 05/24/22 14:11 Pulse Oximetry 99 05/24/22 14:11 Oxygen Delivery Method 05/24/22 14:11 Course Orders Ordered: ED Orders 05/24/22 14:51 UA Complete [Urinalysis and Microscopic] Stat Discontinued Medications Lidocaine HCl (Lidocaine 2% (Glydo) 6 Ml Gel) 6 ml TOP NOW ONE Stop: 05/24/22 14:58 Vital Signs Vital signs: Vital Signs - 8 hr 05/24/22 14:11 Temperature 98.9 F Pulse Rate 66 Respiratory Rate 16 Blood Pressure 112/67 Pulse Oximetry 99 Oxygen Delivery Method Room Air MDM - Male Genitourinary MDM Narrative Medical decision making narrative: thurman catheter was replaced and is now draining well. Patient has no current active infectious symptoms. Will wait for urine culture to return. Discharge Plan Departure Patient Disposition: Home Clinical Impression: Malfunction of Thurman catheter Instructions: How to Care for Your Thurman Catheter -- Male Activity Restrictions/Additional Instructions: Follow-up with your physician. Urine sample was sent today. If positive on culture we will contact you. Please return for fevers, new or worsening abdominal, back or flank pain, persistent vomiting, if your catheter appears clotted or is not draining or you have other new or concerning changes. Referrals: Shantelle Spivey MD [Primary Care Provider] -
[2022-05-24] MEDS: LIDOCAINE 2% (GLYDO) 6 ML GEL TOP (15:15)
[2022-05-24 15:40] VITALS: BP 154/74; PULSE 63; RESP 18; O2SAT 99
[2022-05-24 16:07] LABS: Appearance Urine UA CLOUDY; Bilirubin Urine UA NEGATIVE (NEGATIVE); Color Urine UA YELLOW; Glucose Urine UA NEGATIVE (Negative); Ketones Urine UA NEGATIVE (NEGATIVE); Leukocyte Esterase Urine UA 3+ (NEGATIVE); Nitrite Urine UA POSITIVE (Negative); Occult Blood Urine UA 3+ (Negative); Protein Urine UA 2+ (Negative); Specific Gravity Urine UA <=1.005 (1.000-1.035); Urobilinogen Urine UA 0.2 E.U./dL (0.2); pH Urine UA 8.5 (4.5-8.0)
[2022-05-24 16:29] LABS: Bacteria Urine Many (>30); RBC Urine 10-30/HPF (0-5/HPF); WBC Urine 1-5/HPF (0-5/HPF)
[2022-05-24 16:30] LABS: Culture Indicated Urine Specimen Cultured; Triple Phosphate Crystal Urine Few
== END 2022-05-24 15:55 | disposition home or self-care (01) ==
PROVIDERS: Emergency Provider Emergency Medicine; Family Provider Psychiatry & Neurology Neurology; PCP Psychiatry & Neurology Neurology
DX: T83.9XXA Unspecified complication of genitourinary prosthetic device, implant and graft, initial encounter (principal)
CPT/HCPCS: 81001; 87077; 87086; 87186; 99282; 99283

== ENCOUNTER → 2022-05-28 12:36 | Outpatient (CLI) | payer OTHER, SELFPAY ==
--- NOTE | 2022-05-28 | DI.CT.S_ITS ---
PROCEDURE: CT KIDNEY URETER BLADDER (KUB) INDICATIONS: KUB TECHNIQUE: Axial sections were acquired from the lung bases to the pubic symphysis. Coronal and sagittal reformats were performed. For radiation dose reduction, the following was used: automated exposure control, adjustment of mA and/or kV according to patient size. COMPARISON: None. FINDINGS: Image quality: Excellent. Lung bases: Lung bases are clear. Heart size is normal. Solid organs: Liver: The liver has no mass or intrahepatic biliary ductal dilatation. Biliary: The gallbladder has no gallstones, pericholecystic fluid, gallbladder wall thickening, or surrounding inflammatory change. Pancreas: The pancreas has no mass or ductal dilatation. There is no surrounding inflammation. Spleen: Normal size. There are no masses. Adrenals: No hypertrophy or nodules. Kidneys: No obstructive calculus or hydronephrosis. No solid mass. No cystic mass. Peritoneum and bowel: The distal esophagus and stomach are normal. The small bowel has a normal caliber and appearance. The terminal ileum is normal. The large bowel has increased stool consistent with constipation. The appendix is not definitively visualized and therefore acute appendicitis cannot be excluded; however there are no secondary findings to suggest acute appendicitis. No free fluid or air. Nodes and vessels: No retroperitoneal or mesenteric adenopathy by size criteria. Aorta and inferior vena cava are normal in size. Miscellaneous: No abdominal wall mass or hernia. PELVIS: Genitourinary: The bladder is decompressed with a Jauregui and has no wall thickening or mass. No bladder calcifications. Bones: No suspicious bony lesions. No compression fractures. Degenerative disc disease at L5-S1. IMPRESSION: 1. No acute abnormality of the abdomen or pelvis. 2. Constipation. Dictated by: Ivan Moore M.D. on 05/28/2022 at 15:05 Approved by: Ivan Moore M.D. on 05/28/2022 at 15:11
== END ==
PROVIDERS: Family Provider Psychiatry & Neurology Neurology; PCP Internal Medicine; Referring Provider Internal Medicine; Visit Provider Internal Medicine
DX: R32 Unspecified urinary incontinence (principal); K59.00 Constipation, unspecified
CPT/HCPCS: 74176

== ENCOUNTER 2022-06-21 02:55 | Emergency (ER) | payer OTHER, SELFPAY ==
[2022-06-21 03:09] VITALS: BP 122/66; PULSE 71; RESP 18; TEMP 36.2; O2SAT 94
--- NOTE | 2022-06-21 03:16 | ED.MALEGU ---
HPI - Male Genitourinary General Chief complaint: Urogenital-Male Stated complaint: Plugged catheter Time Seen by Provider: 06/21/22 03:16 Source: patient and family Mode of arrival: Wheelchair History of Present Illness HPI Narrative: Patient is a 76-year-old male who has a chronic indwelling Jauregui catheter for urinary retention. He has frequent problems and malfunction UTIs. A catheter stopped working as it has previously was easily replaced. He has no significant abdominal pain nausea vomiting or fevers. He has an appointment with a urologist next week. Related Data Previous Rx's Medication Instructions Recorded cephalexin 500 mg capsule 500 mg PO BID 7 days #14 caps 06/21/22 Allergies Allergy/AdvReac Type Severity Reaction Status Date / Time No Known Drug Allergies Allergy Verified 06/21/22 03:09 Review of Systems Review of Systems Narrative: GENERAL: Denies chills,fever HEENT: Denies throat pain RESPIRATORY: Denies dyspnea, cough, wheezing CARDIOVASCULAR: Denies chest pain, palpitations GASTROINTESTINAL: Denies nausea, vomiting : See HPI MUSCULOSKELETAL: Denies extremity pain, injury SKIN: No rash, no laceration, no pruritus NEUROLOGIC: Denies weakness, dizziness, headache, numbness 8 point review of systems is negative except for those stated above and HPI Patient History Medical History Multiple sclerosis Urinary retention Social History Smoking Status: Former smoker Smoking Status: Former smoker alcohol intake frequency: 0-2 drinks per day Substance Use Type: does not use Exam Initial Vital Signs Initial Vital Signs: Vital Signs Temperature 97.2 F L 06/21/22 03:09 Pulse Rate 71 06/21/22 03:09 Respiratory Rate 18 06/21/22 03:09 Blood Pressure 122/66 06/21/22 03:09 Pulse Oximetry 94 06/21/22 03:09 Oxygen Delivery Method 06/21/22 03:09 GENERAL: Pleasant alert 76 male no acute distress CARDIOVASCULAR: peripheral pulses in tact, cap refill <2 sec RESPIRATORY: No respiratory distress, speaks in full sentences without difficulty [ABDOMEN: Soft, nontender, no guarding or rebound] : Jauregui catheter placed clear drainage EXTREMITIES: Normal range of motion, no clubbing or edema. Neurovascularly intact NEUROLOGICAL: Cranial nerves II through XII grossly intact. Normal gait and speech. SKIN: Warm, dry, no petechiae, no rashes or lesions. Course Orders Ordered: ED Orders 06/21/22 03:26 Urinalysis and Microscopic Stat Urine Culture Stat Vital Signs Vital signs: Vital Signs - 8 hr 06/21/22 03:09 06/21/22 04:30 Temperature 97.2 F L Pulse Rate 71 70 Respiratory Rate 18 14 Blood Pressure 122/66 123/72 Pulse Oximetry 94 98 Oxygen Delivery Method Room Air Room Air MDM - Male Genitourinary Lab Data Labs: Lab Results 06/21/22 Range/Units 03:26 Urine Color Yellow Urine Appearance Slightly cloudy Urine pH 8 (4.5-8.0) Ur Specific [place] 1.005 (1.000-1.035) Urine Protein Trace H (Negative) Urine Glucose (UA) Negative (Negative) g/dL Urine Ketones Negative (NEGATIVE) Urine Occult Blood 3+ H (Negative) Urine Nitrate Positive H (Negative) Urine Bilirubin Negative (NEGATIVE) Urine Urobilinogen Normal (0.2) E.U./dL Ur Leukocyte Esterase 2+ H (NEGATIVE) Urine RBC 5-10/hpf H (0-5/HPF) Urine WBC 10-30/hpf H (0-5/HPF) Triple Phos Crystals Few Urine Bacteria Many (>30) H (None) Ur Culture Indicated? Specimen cultured MDM Narrative Medical decision making narrative: Patient has a chronic indwelling Jauregui catheter frequent UTIs frequent replacements. Does have an appointment with urology. It it does grow bacteria which is mostly sensitive. Previously placed Keflex. Will give a prescription for Keflex today he is positive for nitrates as he was last time. Does not have any sort of sepsis presentation. His also possible colonization at this point. No need for blood work or other imaging at this time. Patient is appropriate and at his face. Discharge Plan Departure Patient Disposition: Home Clinical Impression: Urinary tract infection, Malfunction of Jauregui catheter Instructions: How to Care for Your Jauregui Catheter -- Male Activity Restrictions/Additional Instructions: *You have been diagnosed with Jauregui catheter malfunction and UTI *What to do: At this time it is unclear why have such frequent catheter problems. Please follow-up with urology. *Continue to take medications as directed Keflex 500 mg twice a day for 7 days--> SENT TO [facility] *Follow up with your primary care provider in 2-3 days or call [phone] *Return to ER if you should have increasing pain Jauregui catheter not working fever confusion or any new, worsening or concerning symptoms Prescriptions: New cephalexin 500 mg capsule 500 mg PO BID 7 Days Qty: 14 0RF Referrals: Ramy Scott MD [Primary Care Provider] - Visit Report Forms: Patient Portal/API
[2022-06-21 03:53] LABS: Appearance Urine UA Slightly Cloudy; Color Urine UA Yellow; Protein Urine UA TRACE (Negative); Specific Gravity Urine UA 1.005 (1.000-1.035); pH Urine UA 8 (4.5-8.0)
[2022-06-21 03:54] LABS: Bilirubin Urine UA Negative (NEGATIVE); Glucose Urine UA NEGATIVE (Negative); Ketones Urine UA NEGATIVE (NEGATIVE); Leukocyte Esterase Urine UA 2+ (NEGATIVE); Nitrite Urine UA POSITIVE (Negative); Occult Blood Urine UA 3+ (Negative); Urobilinogen Urine UA Normal E.U./dL (0.2)
[2022-06-21 03:58] LABS: RBC Urine 5-10/HPF (0-5/HPF)
[2022-06-21 03:59] LABS: Bacteria Urine Many (>30); Culture Indicated Urine Specimen Cultured; Triple Phosphate Crystal Urine Few; WBC Urine 10-30/HPF (0-5/HPF)
[2022-06-21 04:30] VITALS: BP 123/72; PULSE 70; RESP 14; O2SAT 98
== END 2022-06-21 04:31 | disposition home or self-care (01) ==
PROVIDERS: Emergency Provider Emergency Medicine; Family Provider Psychiatry & Neurology Neurology; PCP Internal Medicine
DX: N39.0 Urinary tract infection, site not specified (principal); T83.9XXA Unspecified complication of genitourinary prosthetic device, implant and graft, initial encounter
CPT/HCPCS: 51798; 81001; 87077; 87086; 87186; 99283

== ENCOUNTER 2022-07-04 23:15 | Emergency (ER) | payer OTHER, SELFPAY ==
[2022-07-04 23:26] VITALS: BP 113/67; PULSE 60; RESP 16; TEMP 35.9; BMI 19.2
--- NOTE | 2022-07-05 01:25 | ED.MALEGU ---
HPI - Male Genitourinary General Chief complaint: Urogenital-Male Stated complaint: plugged cathether Time Seen by Provider: 07/05/22 01:24 Source: patient Mode of arrival: Ambulatory History of Present Illness HPI Narrative: Patient is a 76-year-old male with chronic indwelling catheter frequent UTIs presenting today with Jauregui catheter problem. He says it stops working around 6:00 p.m. as it has since been changed and is working just fine. Every time his Jauregui catheter clogged he has a UTI. He has had either Proteus mirabilis or Citrobacter. He is not on daily preventative antibiotics. He is previously given Keflex. He denies any abdominal pain nausea vomiting fever or other symptoms Related Data Home Medications Medication Instructions Recorded Confirmed carbidopa 25 mg tablet 25 mg PO Q8H 06/29/22 06/29/22 droxidopa 100 mg capsule 100 mg PO TID 06/29/22 06/29/22 Previous Rx's Medication Instructions Recorded cephalexin 500 mg capsule 500 mg PO BID 7 days #14 caps 07/05/22 Allergies Allergy/AdvReac Type Severity Reaction Status Date / Time No Known Drug Allergies Allergy Verified 06/29/22 12:58 Review of Systems Review of Systems Narrative: GENERAL: Denies chills,fever HEENT: Denies throat pain RESPIRATORY: Denies dyspnea, cough, wheezing CARDIOVASCULAR: Denies chest pain, palpitations GASTROINTESTINAL: Denies nausea, vomiting see HPI MUSCULOSKELETAL: Denies extremity pain, injury SKIN: No rash, no laceration, no pruritus NEUROLOGIC: Denies weakness, dizziness, headache, numbness 8 point review of systems is negative except for those stated above and HPI Patient History Medical History History of UTI Multiple sclerosis Neurological disease Parkinson disease Urinary retention Surgical History H/O transurethral resection of prostate History of hernia repair Family History Mother Cancer Father Diabetes mellitus Social History marital status: number of children: 0 Smoking Status: Former smoker Smoking Status: Former smoker alcohol intake frequency: 0-2 drinks per day Substance Use Type: does not use Exam Initial Vital Signs Initial Vital Signs: Vital Signs Temperature 96.7 F L 07/04/22 23:26 Pulse Rate 60 07/04/22 23:26 Respiratory Rate 16 07/04/22 23:26 Blood Pressure 113/67 07/04/22 23:26 Oxygen Delivery Method 07/04/22 23:26 GENERAL: Alert pleasant 76 year male CARDIOVASCULAR: peripheral pulses in tact, cap refill <2 sec RESPIRATORY: No respiratory distress, speaks in full sentences without difficulty EXTREMITIES: Normal range of motion, no clubbing or edema. Neurovascularly intact : Jauregui catheter placed NEUROLOGICAL: Cranial nerves II through XII grossly intact. Normal gait and speech. SKIN: Warm, dry, no petechiae, no rashes or lesions. Course Orders Ordered: ED Orders 07/05/22 00:15 UA Complete [Urinalysis and Microscopic] Stat Urine Culture Stat Vital Signs Vital signs: Vital Signs - 8 hr 07/04/22 23:26 Temperature 96.7 F L Pulse Rate 60 Respiratory Rate 16 Blood Pressure 113/67 Oxygen Delivery Method Room Air MDM - Male Genitourinary Lab Data Labs: Lab Results 07/05/22 Range/Units 00:15 Urine Color Yellow Urine Appearance Cloudy Urine pH >= 9.0 H (4.5-8.0) Ur Specific [place] 1.010 (1.000-1.035) Urine Protein 1+ H (Negative) Urine Glucose (UA) Negative (Negative) g/dL Urine Ketones Negative (NEGATIVE) Urine Occult Blood 3+ H (Negative) Urine Nitrate Positive H (Negative) Urine Bilirubin Negative (NEGATIVE) Urine Urobilinogen 0.2 (0.2) E.U./dL Ur Leukocyte Esterase 3+ H (NEGATIVE) Urine RBC 1-5/hpf (0-5/HPF) Urine WBC 1-5/hpf (0-5/HPF) Triple Phos Crystals Few Urine Bacteria Many (>30) H (None) Ur Culture Indicated? Specimen cultured MDM Narrative Medical decision making narrative: Patient has chronic indwelling Jauregui catheter with multiple is Jauregui catheter mouth functions. Every time he has a malfunction hands of in the emergency department with positive nitrates in his urine. UTIs may be causing his malfunction. He is not having any systemic issues may be colonization. Discussed with them may need daily antibiotic to help prevent infections. Is given prescription for Keflex previous culture is resistant to Bactrim and Macrobid Discharge Plan Departure Patient Disposition: Home Clinical Impression: Malfunction of Jauregui catheter, Urinary retention Instructions: DI for Urinary Retention in Men Activity Restrictions/Additional Instructions: *You have been diagnosed with urinary retention and Jauregui catheter problem *What to do: Please talk with your PCP or urologist in regards to his daily antibiotics to help prevent infection which might help prevent Jauregui catheter problems *Continue to take medications as directed Keflex 500 mg twice a day for 7 days *Follow up with your primary care provider in 2-3 days or call [phone] *Return to ER if you should have problems with Jauregui catheter fever abdominal or any new, worsening or concerning symptoms Prescriptions: New cephalexin 500 mg capsule 500 mg PO BID 7 Days Qty: 14 0RF No Action carbidopa 25 mg tablet 25 mg PO Q8H droxidopa 100 mg capsule 100 mg PO TID Rx Instructions: give consistently with OR without food, upon rising, at midday, late PM/at least 3hrs before bedtime Referrals: Ramy Scott MD [Primary Care Provider] - Visit Report Forms: Patient Portal/API
[2022-07-05 02:16] LABS: Bilirubin Urine UA NEGATIVE (NEGATIVE); Color Urine UA YELLOW; Glucose Urine UA NEGATIVE (Negative); Ketones Urine UA NEGATIVE (NEGATIVE); Leukocyte Esterase Urine UA 3+ (NEGATIVE); Nitrite Urine UA POSITIVE (Negative); Occult Blood Urine UA 3+ (Negative); Protein Urine UA 1+ (Negative); Urobilinogen Urine UA 0.2 E.U./dL (0.2); pH Urine UA >= 9.0 (4.5-8.0)
[2022-07-05 02:18] LABS: Appearance Urine UA CLOUDY
[2022-07-05 03:13] LABS: Bacteria Urine Many (>30); Culture Indicated Urine Specimen Cultured; RBC Urine 1-5/HPF (0-5/HPF); Triple Phosphate Crystal Urine Few; WBC Urine 1-5/HPF (0-5/HPF)
== END 2022-07-05 01:56 | disposition home or self-care (01) ==
PROVIDERS: Emergency Provider Emergency Medicine; Family Provider Psychiatry & Neurology Neurology; PCP Internal Medicine
DX: T83.011A Breakdown (mechanical) of indwelling urethral catheter, initial encounter (principal); R33.8 Other retention of urine
CPT/HCPCS: 51798; 81001; 87077; 87086; 87186; 99282; 99283

== ENCOUNTER 2023-06-28 00:24 | Emergency (ER) | payer OTHER, SELFPAY ==
--- NOTE | 2023-06-28 00:28 | ED.GENADULT ---
HPI - General Adult General Chief complaint: Urogenital-Male Stated complaint: Catheter problem Time Seen by Provider: 06/28/23 00:24 Source: patient and EMS Mode of arrival: EMS Limitations: no limitations History of Present Illness HPI narrative: Patient is a 77-year-old male. Has a history of Parkinson's disease. Is not ambulatory at baseline. Has a urinary catheter in place. States that he is not had any drainage for the urinary catheter for the past 6-8 hours. He is having some lower abdominal tenderness. He attempted to flush the catheter at home but was unsuccessful. He thinks that the current catheter was placed approximately 2 weeks ago. He normally has a new catheter placed monthly. Related Data Home Medications Medication Instructions Recorded Confirmed carbidopa 25 mg tablet 25 mg PO Q8H 06/29/22 06/29/22 droxidopa 100 mg capsule 100 mg PO TID 06/29/22 06/29/22 Allergies Allergy/AdvReac Type Severity Reaction Status Date / Time No Known Drug Allergies Allergy Verified 06/29/22 12:58 Review of Systems Constitutional Constitutional: Reports system reviewed and no additional complaints, except as documented Gastrointestinal Gastrointestinal: Reports system reviewed and no additional complaints, except as documented Genitourinary Genitourinary: Reports system reviewed and no additional complaints, except as documented Patient History Medical History History of UTI Neurological disease Parkinson disease Urinary retention Multiple sclerosis Surgical History H/O transurethral resection of prostate History of hernia repair Family History Mother Cancer Father Diabetes mellitus Social History marital status: number of children: 0 Smoking Status: Former smoker Smoking Status: Former smoker alcohol intake frequency: 0-2 drinks per day Substance Use Type: does not use Exam Initial Vital Signs Initial Vital Signs: Vital Signs Temperature 98.0 F 06/28/23 00:33 Pulse Rate 69 06/28/23 00:33 Respiratory Rate 18 06/28/23 00:33 Blood Pressure 172/87 H 06/28/23 00:33 Pulse Oximetry 99 06/28/23 00:33 Oxygen Delivery Method Room Air 06/28/23 00:33 GI Inspection: non-distended Palpation: tender (Lower abdomen) External: normal external exam Extrem General: normal to inspection and capillary refill normal Course Orders Ordered: ED Orders 06/28/23 02:13 Urine Culture Stat Discontinued Medications Lidocaine HCl (Lidocaine 2% (Glydo) 6 Ml Gel) 6 ml TOP NOW ONE Stop: 06/28/23 01:03 Last Admin: 06/28/23 01:11 Dose: 6 ml Documented By: SB Vital Signs Vital signs: Vital Signs - 8 hr 06/28/23 00:33 06/28/23 02:08 Temperature 98.0 F Pulse Rate 69 68 Respiratory Rate 18 18 Blood Pressure 172/87 H 169/79 H Pulse Oximetry 99 97 Oxygen Delivery Method Room Air Room Air Medical Decision Making MDM Narrative Medical decision making narrative: Attempted to flush the catheter here in the ER but we were unsuccessful. The catheter was removed and replaced with a new 1. It is now draining. We will obtain a urine culture and wait for the results of this before starting on any antibiotics as the patient does not having any fevers or chills. He was given return precautions and follow-up instructions. He expressed understanding and agreement. Discharge Plan Departure Patient Disposition: Home Clinical Impression: Complication of Jauregui catheter Instructions: How to Care for Your Jauregui Catheter -- Male Activity Restrictions/Additional Instructions: Continue to take all of your medications as directed. Keep all of your scheduled medical appointments. Return to the emergency department for new or worsening symptoms. Prescriptions: No Action carbidopa 25 mg tablet 25 mg PO Q8H droxidopa 100 mg capsule 100 mg PO TID Rx Instructions: give consistently with OR without food, upon rising, at midday, late PM/at least 3hrs before bedtime Referrals: Ramy Scott MD [Family Provider] - Stand Alone Forms: Patient Portal/API
[2023-06-28 00:33] VITALS: BP 172/87; PULSE 69; RESP 18; TEMP 36.7; O2SAT 99; BMI 21.8
[2023-06-28] MEDS: LIDOCAINE 2% (GLYDO) 6 ML GEL TOP (01:11)
[2023-06-28 02:08] VITALS: BP 169/79; PULSE 68; RESP 18; O2SAT 97
== END 2023-06-28 02:08 | disposition home or self-care (01) ==
PROVIDERS: Emergency Provider Emergency Medicine; Family Provider Internal Medicine; PCP Family Medicine
DX: R33.9 Retention of urine, unspecified (principal); T83.091A Other mechanical complication of indwelling urethral catheter, initial encounter
CPT/HCPCS: 51702; 99283

== ENCOUNTER 2023-07-06 07:43 | Emergency (ER) | payer OTHER, SELFPAY ==
[2023-07-06 07:45] VITALS: BP 122/65; PULSE 70; RESP 20; TEMP 36.9; O2SAT 95
--- NOTE | 2023-07-06 07:45 | ED_ITS ---
HPI - General Adult General Chief complaint: Urogenital-Male Stated complaint: Clogged catheter Time Seen by Provider: 07/06/23 07:45 History of Present Illness HPI narrative: 79-year-old male with a history of Parkinson's is bed-bound at baseline presents from nursing facility by EMS for evaluation of Thurman catheter problem. Report through EMS is that it stopped draining some time overnight or yesterday patient is now having suprapubic tenderness. He denies any fever or chills nor nausea or vomiting. No chest pain or shortness of breath. After some further questioning the patient does state that he has been generally declining in his having difficulty caring for himself at home. He does have some skin breakdown without evidence of infection and has dried fecal material, stating that he has a hard time caring for himself. He does state that it might be an appropriate time to consider whether or not he may benefit from placement or some extra help at home Related Data Home Medications Medication Instructions Recorded Confirmed carbidopa 25 mg tablet 25 mg PO Q8H 06/29/22 06/29/22 droxidopa 100 mg capsule 100 mg PO TID 06/29/22 06/29/22 Previous Rx's Medication Instructions Recorded amoxicillin 500 mg-potassium 1 tab PO BID #20 tabs 07/06/23 clavulanate 125 mg tablet (Augmentin) Allergies Allergy/AdvReac Type Severity Reaction Status Date / Time No Known Drug Allergies Allergy Verified 07/06/23 08:30 Review of Systems Review of Systems Narrative: GENERAL: Denies chills, fatigue, malaise, fever, sweats. HEENT: Denies sinus pain, ear pain, sore throat, difficulty swallowing, dizziness. RESPIRATORY: Denies dyspnea, cough, wheezing, hemoptysis, sputum. CARDIOVASCULAR: Denies chest pain, palpitations, orthopnea, edema, GASTROINTESTINAL: Denies nausea, vomiting, abdominal pain, diarrhea, constipation, melena. : see HPI MUSCULOSKELETAL: denies weakness, joint pain, or bony pain SKIN: Denies rash, skin lesions, or other NEUROLOGIC: Denies weakness, headache, numbness, change in speech, confusion, seizures, incoordination. PSYCHIATRIC: No concerning psychosocial issues. 12 point review of systems is negative except for those stated above Patient History Medical History History of UTI Neurological disease Parkinson disease Urinary retention Multiple sclerosis Surgical History H/O transurethral resection of prostate History of hernia repair Family History Mother Cancer Father Diabetes mellitus Social History marital status: number of children: 0 Smoking Status: Former smoker Smoking Status: Former smoker alcohol intake frequency: 0-2 drinks per day Substance Use Type: does not use Exam Narrative Exam Narrative: GEN: AOx3 and in mild distress EYES: Pupils are equal, round, and reactive to light and accommodation. Extraoccular muscles are intact bilaterally. There is no subconjunctival hemorrhage or exudate. CHEST: Lungs are clear to auscultation bilaterally and free of wheezes, rales, or rhonchi. Heart rate is regular rhythm, there are no murmurs, clicks, rubs, or gallops. There is no chest wall tenderness. ABD: Abdomen is soft and mild tenderness in suprapubic region, minimal drainage in thurman. There is no guarding or rebound. Bowel sounds are normal in all 4 quadrants. There is no mass or organomegaly. EXT: Full painless ROM of all extremities with no loss of sensation or strength. SKIN: Warm, pink, and dry. No erythema or rash Initial Vital Signs Initial Vital Signs: Vital Signs Temperature 98.5 F 07/06/23 07:45 Pulse Rate 70 07/06/23 07:45 Respiratory Rate 20 07/06/23 07:45 Blood Pressure 122/65 07/06/23 07:45 Pulse Oximetry 95 07/06/23 07:45 Oxygen Delivery Method Room Air 07/06/23 07:45 Course Orders Ordered: ED Orders 07/06/23 08:15 Urinalysis and Microscopic Stat Urine Culture Stat 07/06/23 08:23 Chest [XR chest 1V] Stat 07/06/23 08:35 Complete Blood Count AUTO DIFF Stat Comprehensive Metabolic Panel Stat Magnesium Stat 07/06/23 08:38 Consult to [employer] - Entry Level Truck [employer] Stat Vital Signs Vital signs: Vital Signs - 8 hr 07/06/23 07:45 Temperature 98.5 F Pulse Rate 70 Respiratory Rate 20 Blood Pressure 122/65 Pulse Oximetry 95 Oxygen Delivery Method Room Air Medical Decision Making Lab Data 07/06/23 08:35 07/06/23 08:35 Labs: Lab Results 07/06/23 07/06/23 Range/Units 08:15 08:35 WBC 13.0 H (4.5-11.0) X10^3/uL RBC 4.33 L (4.5-5.9) X10^6/uL Hgb 13.7 (13.5-17.5) g/dL Hct 40.1 L (41-53) % MCV 92.7 (80-100) fL MCH 31.7 (26-34) PG MCHC 34.2 (30-36) % RDW 13.0 (11.6-14.8) % Plt Count 223 (150-400) X10^3/uL Neut % (Auto) 82.3 H (50-75) % Lymph % (Auto) 6.3 L (25-40) % Coles % (Auto) 8.8 (3-14) % Eos % (Auto) 2.1 (2-4) % Baso % (Auto) 0.5 (0-2) % Neut # (Auto) 43597 H (6070-3364) /uL Lymph # (Auto) 800 L (4132-9397) /uL Coles # (Auto) 1100 H (0-900) /uL Eos # (Auto) 300 (0-450) /uL Baso # (Auto) 100 (0-100) /uL Sodium 138 (137-145) mmol/L Potassium 4.2 (3.4-5.1) mmol/L Chloride 103 (98-107) mmol/L Carbon Dioxide 29 (22-32) mmol/L BUN 34 H (9-20) mg/dL Creatinine 0.85 (0.66-1.25) mg/dL Estimated GFR > 60 (>60) mL/min BUN/Creatinine Ratio 40.0 H (6-22) Glucose 101 (80-110) mg/dL Calcium 9.5 (8.4-10.2) mg/dL Magnesium 2.1 (1.6-2.3) mg/dL Total Bilirubin 1.0 (0.2-1.3) mg/dL AST 44 (17-59) IU/L ALT 9 (<50) IU/L Alkaline Phosphatase 58 (38-126) U/L Total Protein 7.7 (6.3-8.2) g/dL Albumin 4.1 (3.5-5.0) g/dL Globulin 3.6 (1.7-4.1) g/dL Albumin/Globulin Ratio 1.1 (1.0-2.8) Urine Color Yellow Urine Appearance Cloudy Urine pH > 9 H (4.5-8.0) Ur Specific [place] 1.010 (1.000-1.035) Urine Protein 3+ H (Negative) Urine Glucose (UA) Negative (Negative) g/dL Urine Ketones Trace H (NEGATIVE) Urine Occult Blood Negative (Negative) Urine Nitrate Negative (Negative) Urine Bilirubin Negative (NEGATIVE) Urine Urobilinogen 1.0 (0.2) E.U./dL Ur Leukocyte Esterase 2+ H (NEGATIVE) Urine RBC None seen (0-5/HPF) Urine WBC 1-5/hpf (0-5/HPF) Ur Squamous Epith Cells None seen (0-5/HPF) Urine Bacteria Many (>30) H (None) Ur Culture Indicated? Specimen cultured MDM Narrative Medical decision making narrative: []77 year old patient presents with Thurman catheter problem, it is not draining Multiple etiologies for patient's symptoms considered including, but not limited to: [Clot catheter versus other] Prior Charts reviewed in our EMR Primary Historian: patient Labs reviewed and interpreted by myself: Urine shows sign of an infectious process, culture obtained, AUgmentin sent Thurman catheter flushed, initially labs drawn given potential indication greater needs at home, however once arrived she informed us that they already have home nursing Patient's symptoms improved over duration of stay with above-stated therapies. Findings and discharge diagnosis discussed with patient/family followed by verbalization of understanding Return precautions discussed with patient/family whom verbalize understanding of diagnosis and plan Discharge Plan Departure Patient Disposition: Home Clinical Impression: Complication of Thurman catheter Instructions: How to Care for Your Thurman Catheter -- Male, DI for Urinary Tract Infection (UTI) Activity Restrictions/Additional Instructions: *You have been diagnosed with [thurman catheter problem and UTI] *What to do: *Please continue to take your regular medications as directed. [x] Augmentin prescription sent to [email or web address] *Please follow up with your primary care provider in 2-3 days, call for an appointment. Let them know you were seen in the Emergency Department and that we ask that you be seen in follow up. We will electronically transmit a record of today's note if your PCP is in our system *If you do not have a primary care provider please contact the [facility] Resource line at [phone]. They will ask some questions about your medical history and help get you set up with a doctor in the community. *Return to Emergency Department if you should have any new, worsening or concerning symptoms, such as [fever greater than 101 F, shaking chills, worsening pain, persistent vomiting or other bothersome symptoms] Prescriptions: New amoxicillin-pot clavulanate [Augmentin] 500-125 mg tablet 1 tab PO BID Qty: 20 0RF No Action carbidopa 25 mg tablet 25 mg PO Q8H droxidopa 100 mg capsule 100 mg PO TID Rx Instructions: give consistently with OR without food, upon rising, at midday, late PM/at least 3hrs before bedtime Referrals: Israel Hollingsworth DO [Primary Care Provider] - Stand Alone Forms: Patient Portal/API
--- NOTE | 2023-07-06 08:23 | DI.RAD.S_ITS ---
PROCEDURE: XR CHEST 1V INDICATIONS: weakness, failure to thrive TECHNIQUE: One view of the chest was acquired. COMPARISON: None. FINDINGS: Surgical changes and devices: None. Lungs and pleura: Diffuse interstitial prominence. Question mild interstitial pulmonary edema. Patchy bibasilar atelectasis. No pleural effusions or pneumothorax. Mediastinum: Mediastinal contours appear normal. Heart size is normal. Bones and chest wall: No suspicious bony lesions. Overlying soft tissues appear unremarkable. IMPRESSION: Question chronic interstitial change versus mild acute interstitial pulmonary edema. Patchy bibasilar atelectasis. Dictated by: Zay Whitlock M.D. on 07/06/2023 at 8:50 Approved by: aZy Whitlock M.D. on 07/06/2023 at 8:54
--- NOTE | 2023-07-06 08:33 | PC.NURSE ---
Pt arrived with a clogged catheter. Catheter was removed and a new cath placed.
[2023-07-06 08:43] LABS: Add Manual Diff / Slide Review NO; Basophils Absolute Auto 100 /uL (0-100); Basophils Percent Auto 0.5 % (0-2); Eosinophils Absolute Auto 300 /uL (0-450); Eosinophils Percent Auto 2.1 % (2-4); Hematocrit 40.1 % (41-53); Hemoglobin 13.7 g/dL (13.5-17.5); Lymphocytes Absolute Auto 800 /uL (1100-4500); Lymphocytes Percent Auto 6.3 % (25-40); Mean Corpuscular HGB Conc 34.2 % (30-36); Mean Corpuscular Hemoglobin 31.7 PG (26-34); Mean Corpuscular Volume 92.7 fL (80-100); Monocytes Absolute Auto 1100 /uL (0-900); Monocytes Percent Auto 8.8 % (3-14); Neutrophils Absolute Auto 10700 /uL (1500-7000); Neutrophils Percent Auto 82.3 % (50-75); Platelet Count 223 X10^3/uL (150-400); Red Blood Cell Count 4.33 X10^6/uL (4.5-5.9)
[2023-07-06 08:55] LABS: Appearance Urine UA CLOUDY; Color Urine UA YELLOW; Glucose Urine UA NEGATIVE (Negative); Ketones Urine UA TRACE (NEGATIVE); Occult Blood Urine UA Negative (Negative); Protein Urine UA 3+ (Negative); pH Urine UA > 9 (4.5-8.0)
[2023-07-06 08:56] LABS: Bilirubin Urine UA Negative (NEGATIVE); Leukocyte Esterase Urine UA 2+ (NEGATIVE); Nitrite Urine UA NEGATIVE (Negative)
[2023-07-06 08:59] LABS: Alanine Aminotransferase 9 IU/L (<50); Albumin 4.1 g/dL (3.5-5.0); Albumin Globulin Ratio 1.1 (1.0-2.8); Alkaline Phosphatase 58 U/L (38-126); Aspartate Aminotransferase 44 IU/L (17-59); Blood Urea Nitrogen 34 mg/dL (9-20); Calcium 9.5 mg/dL (8.4-10.2); Carbon Dioxide 29 mmol/L (22-32); Chloride 103 mmol/L (98-107); Estimated Glomerular Filt Rate > 60 mL/min (>60); Globulin 3.6 g/dL (1.7-4.1); Glucose 101 mg/dL (80-110); HEMOLYSIS 42 (0-50); Magnesium 2.1 mg/dL (1.6-2.3); Potassium 4.2 mmol/L (3.4-5.1); Sodium 138 mmol/L (137-145); Total Protein 7.7 g/dL (6.3-8.2)
[2023-07-06 09:02] LABS: RBC Urine None Seen (0-5/HPF); WBC Urine 1-5/HPF (0-5/HPF)
[2023-07-06 09:03] LABS: Bacteria Urine Many (>30); Culture Indicated Urine Specimen Cultured; Squamous Epithelial Cell Urine None Seen (0-5/HPF)
[2023-07-06 10:10] VITALS: BP 130/60; PULSE 66; RESP 18; O2SAT 95
--- NOTE | 2023-07-07 15:31 | CM.SWNOTE ---
ED STATE GAME PROTECTOR follow up note STATE GAME PROTECTOR receives consult from RN regarding patient's need for higher level of care. RN reports that patient has caregivers and lives with but reports concern for patient's hygiene and dental care. STATE GAME PROTECTOR calls patient's spouse and leaves VM. Spouse calls this STATE GAME PROTECTOR back and states that patient yesterday. STATE GAME PROTECTOR expresses condolences, spouse states that patient's caregivers and neighbors have been supportive. STATE GAME PROTECTOR to call [facility] as patient is a to see how they can support patient's spouse during this time. Heydi Jones, RESEARCH ASSISTANT
== END 2023-07-06 10:07 | disposition home or self-care (01) ==
PROVIDERS: Emergency Provider Emergency Medicine; Family Provider Internal Medicine; PCP Family Medicine
DX: T83.098A Other mechanical complication of other urinary catheter, initial encounter (principal); Y84.6 Urinary catheterization as the cause of abnormal reaction of the patient, or of later complication, without mention of misadventure at the time of the procedure; N39.0 Urinary tract infection, site not specified
CPT/HCPCS: 51798; 71045; 80053; 81001; 83735; 85025; 87077; 87086; 87186; 99283